=== PATIENT | female | born 1995 | race Caucasian/White ===

== ENCOUNTER → 2018-02-15 | Outpatient (REF) | payer OTHER | LOC: M SFHCLERA 15:00 | PROVIDERS: ATTEND Nurse Practitioner Family | DX: J02.9 Acute pharyngitis, unspecified (principal) ==

== ENCOUNTER → 2018-07-23 | Outpatient (CLI) | payer OTHER ==
[~2018-07-23] MED LIST: ISOVUE-370 76% 100ML VIAL (Q9967) As Ordered ONE
--- NOTE | 2018-07-23 19:11 | REP ---
CT chest with contrast History: Abnormal lung findings. Contrast: Isovue 70 75 ml Calcified granuloma are present in the left upper lobe. The right lung is clear. There is no pleural effusion. The heart is normal in size. Small lymph nodes less than 1 cm in size are present in the mediastinum. Calcified lymph nodes are present in the jairo. There is no aneurysm. The gallbladder is retracted. Impression: Old granulomatous disease. Electronically Signed by Froylan Moraes MD 07/23/2018 07:03 P
== END ==
LOC: M RAD 17:13
PROVIDERS: ATTEND Internal Medicine Pulmonary Disease
DX: J84.112 Idiopathic pulmonary fibrosis (principal)
CPT/HCPCS: 71260; Q9967

== ENCOUNTER → 2019-07-13 | Outpatient (CLI) | payer OTHER ==
--- NOTE | 2019-07-13 10:49 | PFTRPT ---
Site: [facility], [address] [place] [address], [id number] ID: [id number] Name: PASTORA MACK Visit Date: 07/13/2019 Second ID: [id number] Referring Doctor: Danii Acevedo Reviewing Doctor: Rizwan Pino MD Photoengraving Apprentice: Sylvia Henriquez Age: 24 : 1995 Sex: Female Race: Height: 65.00 Inches Weight: 229.00 Lbs BSA: 2.10 Order IDs: [id number] Requested Test(s): <RESP-PFT.DLCO> Diagnosis: R06.02 test meet the ATS standards for acceptability and repeatability. Review Status: Not Reviewed Pre-Bronch Post-Bronch Pred Actual %Pred Actual %Chng SPIROMETRY FVC (L) 3.91 4.99 127 FEV1 (L) 3.34 4.01 119 FEV1/FVC (%) 85 80 94 FEF 25% (L/sec) 5.90 6.71 113 FEF 50% (L/sec) 4.61 4.84 104 FEF 75% (L/sec) 1.99 1.83 91 FEF 25-75% (L/sec) 3.63 3.90 107 FEF Max (L/sec) 7.11 6.78 95 FIVC (L) 4.34 FIF 50% (L/sec) 4.50 5.28 117 FIF Max (L/sec) 5.73 MVV (L/min) 113 140 124 Expiratory Time (sec) 7.00 Back Extrap Vol (L) 0.16 Time To FEFmax (sec) 0.156 LUNG VOLUMES SVC (L) 3.84 5.06 131 IC (L) 2.36 3.68 156 ERV (L) 1.48 1.37 92 TGV (L) 2.84 2.80 98 RV (Pleth) (L) 1.36 1.43 105 TLC (Pleth) (L) 5.20 6.49 124 RV/TLC (Pleth) (%) 25 22 88 DIFFUSION DLCOunc (ml/min/mmHg) 25.79 26.95 104 DLCOcor (ml/min/mmHg) 25.79 27.21 105 DL/VA (ml/min/mmHg/L) 4.96 4.38 88 VA (L) 5.20 6.21 119 BHT (sec) 10.65 IVC (L) 4.89 TLC (SB) (L) 6.36 AIRWAYS RESISTANCE Raw (cmH2O/L/s) 1.86 1.30 69 Gaw (L/s/cmH2O) 1.03 0.79 76 sRaw (cmH2O*s) 4.76 4.14 87 sGaw (1/cmH2O*s) 0.20 0.25 123 BLOOD GASES Hgb (gm/dL) 13.1
== END ==
LOC: M CARPUL 09:48
PROVIDERS: ATTEND Nurse Practitioner Adult Health
DX: R06.02 Shortness of breath (principal)

== ENCOUNTER → 2019-07-18 | Outpatient (CLI) | payer OTHER ==
[~2019-07-18] MED LIST changes: -ISOVUE-370 76% 100ML VIAL (Q9967) As Ordered ONE; +METHACHOLINE KIT (J7674) INH ONE
--- NOTE | 2019-07-18 15:57 | PFTRPT ---
Height: 65.00 Inches Weight: 229.00 Lbs BSA: 2.10 Diagnosis: R06.02 DATE OF PROCEDURE: 07/18/2019 ORDERED BY: Alla Guzman INTERPRETATION: Study of excellent technical quality. Under protocol, methacholine was administered. Even after a maximal dose of 25 mg (188.875 CDUs), no significant decline in the FEV1 was noted. IMPRESSION: Negative methacholine challenge study. MTDD
== END ==
LOC: M CARPUL 14:43
PROVIDERS: ATTEND Nurse Practitioner Adult Health
DX: R06.02 Shortness of breath (principal)
CPT/HCPCS: 94070; J7674

== ENCOUNTER 2020-05-02 20:45 | Emergency (ER) | payer OTHER ==
[~2020-05-02] VITALS: Ht 165.1 cm; Wt 100.0 kg
--- NOTE | 2020-05-02 22:05 | REPVR ---
PROCEDURE INFORMATION: Exam: US , Limited Exam date and time: 05/02/2020 9:21 PM Age: 24 years old Clinical indication: Lmp or gestational age (in weeks): 18; Other: Fluid leakage; ; Additional info: 18wk, ? prom, TECHNIQUE: Imaging protocol: Real-time ultrasound of the maternal uterus with image documentation. Exam focused on the clinical indication. COMPARISON: No relevant prior studies available. FINDINGS: Gestation: Single gestational sac in the uterus. heart rate: heart rate 138 bpm. Placenta: Fundal placenta. Amniotic fluid: Normal amniotic fluid volume. BIOMETRY: Gestational age (AUA): Gestational age based on LMP of 12/28/2019 is 18 weeks. ELVIN is 10/03/2020. MATERNAL: Cervix: Cervix measures 3.5 cm. Other findings: Amniotic fluid volume index 11.9 cm. IMPRESSION: Normal amniotic fluid. Gestational age is 18 weeks based on LMP. Electronically signed by: Brent Canales On 05/02/2020 22:05:20 PM
--- NOTE | 2020-05-02 23:28 | IPNPDOC ---
Text Note Date of Service The patient was seen on 05/02/20. NOTE Consulted by ED provider to perform a ferning. Per report, 18wk gestation with concern for ROM with negative pooling and normal FELICITY. Ferning viewed to be negative at point of care testing. VS,Fishbone, I+O VS, Fishbone, I+O Vital Signs Date Time Temp Pulse Resp B/P (MAP) Pulse Ox O2 Delivery O2 Flow Rate FiO2 05/02/20 22:53 88 18 128/66 (86) 99 Room Air 05/02/20 20:46 96.5 OSEAS EDGE DO May 02, 2020 23:28
[2020-05-03 00:46] VITALS: BP 121/63
== END 2020-05-03 00:47 | disposition home or self-care (01) ==
LOC: M ED 20:45
DX: O26.892 Other specified pregnancy related conditions, second trimester (principal); N89.8 Other specified noninflammatory disorders of vagina; Z88.5 Allergy status to narcotic agent; Z88.8 Allergy status to other drugs, medicaments and biological substances; Z3A.18 18 weeks gestation of pregnancy